=== PATIENT | male | born 1945 | race Caucasian/White ===

== ENCOUNTER 2019-05-11 12:55 | Emergency (ER) | payer MEDICARE, BC ==
[~2019-05-11] VITALS: Ht 172.7 cm; Wt 75.0 kg
[~2019-05-11 12:55] MED LIST: AMLO2.5T2 PO; AMOX-422 PO; ASPI-611 PO; MELO-100 PO; POTA-82 PO
[2019-05-11] MEDS ORDERED: acetaminophen 325mg tablet PO ONE (13:15)
[2019-05-11] MEDS ORDERED: HYDROcodone/acetaminophen 5mg/325mg tablet PO ONE (13:15)
[2019-05-11] MEDS ORDERED: dexamethasone 4mg/ml inj IM ONE (13:15)
[2019-05-11] MEDS ORDERED: BUPIVAcaine/PF 2.5 mg/ml (0.25%) 30ml vial IJ ONE (13:25)
[2019-05-11] MEDS ORDERED: fentaNYL/PF 50MCG/1 ML 2ML syringe IM ONE (13:25)
[2019-05-11] MEDS ORDERED: BUPIVAcaine/PF 2.5mg/ml (0.25%) 10ml vial IJ ONE (14:25)
[2019-05-11] MEDS ORDERED: ondansetron 4mg rapidly disintigrating tab PO ONE (14:35)
--- NOTE | 2019-05-11 14:43 | NUR ---
AT BEDSIDE WITH MD FOR ASPIRATION PROCEDURE
[2019-05-11 16:10] LABS: APPEARANCE,SYNOVIAL FLUID CLOUDY; COLOR,SYNOVIAL FLUID YELLOW; SYN WBC 43500 /CU MM (0-200)
[2019-05-11 16:11] LABS: MONOCYTES,SYNOVIAL FLUID 1 % (0-0); NEUTROPHILS,SYNOVIAL FLUID 99 % (0-25); SYN RBC 575 /CU MM (0)
[2019-05-11 16:15] LABS: SYNOVIAL FLUID CRYSTALS QT NO CRYSTALS SEEN
[2019-05-11] MEDS ORDERED: morphine 4 MG/ML inj SYRINge IM ONE (16:55)
[2019-05-11] MEDS ORDERED: ketorolac trometh inj. 60 MG/2 ML VIAL IM ONE (16:55)
[2019-05-11] MEDS ORDERED: triamcinolone acetonide 40mg/ml inj IM ONE (16:55)
[2019-05-11] MEDS ORDERED: HYDR-3965 PO (18:49)
[2019-05-11] MEDS ORDERED: ONDA8TAB6 PO (18:49)
--- NOTE | 2019-05-11 18:59 | NUR ---
PT EDUCATED ON USE OF CRUTCHES. PT DEMOSTRATED AMBULATION W/ CRUTCHES TO BATHROOM.
[2019-05-11 19:00] VITALS: BP 156/101
== END 2019-05-11 19:10 | disposition home or self-care (01) ==
LOC: ER 12:55
DX: M25.561 Pain in right knee (principal); G89.29 Other chronic pain; M19.90 Unspecified osteoarthritis, unspecified site; Z79.82 Long term (current) use of aspirin; Z79.899 Other long term (current) drug therapy; Z98.890 Other specified postprocedural states; X58.XXXA Exposure to other specified factors, initial encounter; Y93.89 Activity, other specified; Y92.89 Other specified places as the place of occurrence of the external cause; Y99.8 Other external cause status
CPT/HCPCS: 20610; 87070; 89051; 89060; 96372; 99284; J1100; J1885; J2270; J3010; J3301; J3490

== ENCOUNTER 2019-06-22 15:02 | Emergency (ER) | payer MEDICARE, BC ==
[~2019-06-22] VITALS: Ht 172.7 cm; Wt 68.2 kg
[~2019-06-22 15:02] MED LIST changes: +ONDA8TAB6 PO
[2019-06-22 15:56] VITALS: BP 141/82
[2019-06-22 16:32] LABS: BASOPHILS # (AUTO) 0.1 X10'3 (0-0.2); BASOPHILS % (AUTO) 0.9 % (0-1); EOSINOPHILS % (AUTO) 0.3 % (0-6); HEMATOCRIT 45.4 % (42.0-52.0); HEMOGLOBIN 15.3 g/dl (14.0-17.9); LYMPHOCYTES # (AUTO) 1.3 X10'3 (1.1-4.8); LYMPHOCYTES % (AUTO) 9.4 % (21-51); MEAN CORPUSCULAR HEMOGLOBIN 31.1 PG (27.0-31.0); MEAN CORPUSCULAR HGB CONC 33.7 g/dL (33.0-36.5); MEAN CORPUSCULAR VOLUME 92.4 FL (78-98); MEAN PLATELET VOLUME 9.2 FL (7.4-10.4); MONOCYTES % (AUTO) 7.2 % (2-12); NEUTROPHILS % (AUTO) 82.2 % (42-75); PLATELET COUNT 186 X10'3 (140-440); RED BLOOD COUNT 4.92 X10'6 (4.70-6.10); RED CELL DISTRIBUTION WIDTH 15.1 % (11.5-14.5); WHITE BLOOD COUNT 13.3 X10'3 (4.5-11.0)
[2019-06-22 16:39] LABS: ALBUMIN 3.8 G/DL (3.4-5.0); ANION GAP 9 (8-16); BLOOD UREA NITROGEN 15 MG/DL (7-18); BUN/CREATININE RATIO 13.4 (5.4-32.0); CALCIUM 9.1 MG/DL (8.5-10.1); CHLORIDE 103 MMOL/L (99-107); CREATININE 1.12 MG/DL (0.60-1.10); GLUCOSE 98 MG/DL (70-104); POTASSIUM 3.6 MMOL/L (3.5-5.1); SODIUM 141 MMOL/L (135-145); TOTAL CARBON DIOXIDE 29.2 MMOL/L (24-32); eGFR 64 ML/MIN
[2019-06-22] MEDS ORDERED: ibuprofen tablet 400 MG TABLET PO ONE (17:20)
[2019-06-22 17:37] LABS: D-DIMER 0.29 MG/L FEU (0-0.50)
== END 2019-06-22 18:01 | disposition home or self-care (01) ==
LOC: ER 15:03
DX: R09.1 Pleurisy (principal); R07.1 Chest pain on breathing; M19.90 Unspecified osteoarthritis, unspecified site; G89.29 Other chronic pain; K21.9 Gastro-esophageal reflux disease without esophagitis; Z98.890 Other specified postprocedural states; Z79.2 Long term (current) use of antibiotics; Z79.899 Other long term (current) drug therapy
CPT/HCPCS: 36415; 71045; 80048; 84484; 85025; 85379; 93005; 99284

== ENCOUNTER 2020-08-20 05:49 | Day surgery (SDC) | payer MEDICARE, BC ==
[2020-08-13 12:26] LABS: BASOPHILS % (AUTO) 0.6 % (0-1); EOSINOPHILS % (AUTO) 0.5 % (0-6); LYMPHOCYTES # (AUTO) 1.7 X10'3 (1.1-4.8); LYMPHOCYTES % (AUTO) 27.6 % (21-51); MEAN CORPUSCULAR HEMOGLOBIN 32.2 PG (27.0-31.0); MEAN CORPUSCULAR HGB CONC 33.5 g/dL (33.0-36.5); MEAN CORPUSCULAR VOLUME 96.1 FL (78-98); MONOCYTES # (AUTO) 0.7 X10'3 (0-0.9); MONOCYTES % (AUTO) 12.1 % (2-12); NEUTROPHILS # (AUTO) 3.6 X10'3 (1.8-7.7); NEUTROPHILS % (AUTO) 59.2 % (42-75); PRE OP HEMATOCRIT 47.2 % (42.0-52.0); PRE OP HEMOGLOBIN 15.8 g/dL (14.0-17.9); PRE OP PLATELET COUNT 137 X10'3 (140-440); RED BLOOD COUNT 4.91 X10'6 (4.70-6.10); RED CELL DISTRIBUTION WIDTH 14.3 % (11.5-14.5)
[2020-08-13 12:38] LABS: PRE OP INR 1.1 INR; PRE OP PROTIME 11.5 SECONDS (9.0-12.0)
[2020-08-13 12:42] LABS: ALBUMIN/GLOBULIN RATIO 1.1 (1.1-1.5); ALKALINE PHOSPHATASE 116 IU/L (46-116); BLOOD UREA NITROGEN 20 MG/DL (7-18); CALCIUM 9.2 MG/DL (8.5-10.1); CHLORIDE 108 MMOL/L (99-107); CREATININE 1.11 MG/DL (0.60-1.10); PRE OP ALT 30 U/L (30-65); PRE OP ANION GAP 11 (8-16); PRE OP AST 27 U/L (10-37); PRE OP BILIRUB, TOTAL 0.7 MG/DL (0.0-1.0); PRE OP GLUCOSE 88 MG/DL (70-104); PRE OP POTASSIUM 3.6 MMOL/L (3.4-5.1); PRE OP SODIUM 146 MMOL/L (135-145); TOTAL CARBON DIOXIDE 26.6 MMOL/L (24-32); TOTAL PROTEIN 7.5 G/DL (6.4-8.2); eGFR 65 ML/MIN
[2020-08-20] VITALS (10 sets, daily range): BP systolic 134–159; BP diastolic 76–92
[~2020-08-20] VITALS: Ht 170.2 cm; Wt 65.6 kg
[~2020-08-20 05:49] MED LIST changes: -AMOX-422 PO; -ASPI-611 PO; -MELO-100 PO; +OMEP20CA15 PO; -ONDA8TAB6 PO; -POTA-82 PO; +famotidine 20mg tablet PO ONE; +ringers solution, lacted 1,000 ML IV SCH
[2020-08-20] MEDS ORDERED: LIDOcaine 1% (10mg/ml) 2ml vial ONE (06:50)
[2020-08-20] MEDS ORDERED: LIDOcaine 1% w/epiNEPHrine 1:200,000 30ml vial SQ ONE (06:50)
[2020-08-20] MEDS ORDERED: LIDOcaine 1% W/epiNEPHrine 1:100,000 20ml vial SQ ONE (06:55)
[2020-08-20] MEDS ORDERED: cefTAZidime 1gm inj IV ONE (06:55)
[2020-08-20] MEDS ORDERED: phenylephrine 1% Nasal spray (extra-strength) 15 ML bottle **bronch room NS ONE (06:55)
[2020-08-20] MEDS ORDERED: methylPREDNISolone acetate 80mg/ml inj**IM only IM ONE (06:55)
[2020-08-20] MEDS ORDERED: cocaine 4% topical solution 4ml bottle TP ONE (06:55)
[2020-08-20] MEDS ORDERED: mupirocin 2% ointment 22GM NS ONE (06:56)
[2020-08-20] MEDS: oxymetazoline 15 ML nasal spray NS ONE ×2 (07:08→08:48)
[2020-08-20] MEDS ORDERED: ringers solution, lacted 1,000 ML IV SCH (08:00)
[2020-08-20] MEDS ORDERED: morphine 4 MG/ML inj SYRINge IV PRN (08:00)
[2020-08-20] MEDS ORDERED: fentaNYL/PF 50MCG/1 ML 2ML syringe IV PRN ×2 (08:00)
[2020-08-20] MEDS ORDERED: hydrALAZINE 20mg/ml inj. IV PRN (08:00)
[2020-08-20] MEDS ORDERED: morphine 2 MG/ML inj. syringe IV PRN (08:00)
[2020-08-20] MEDS ORDERED: labetalol 20mg/4ml (5mg/ml) syringe IV PRN (08:00)
[2020-08-20] MEDS ORDERED: ondansetron/PF 4mg/2ml inj IV PRN (08:00)
[2020-08-20] MEDS ORDERED: sevoflurane 250ml liquid IH ONE (08:05)
[2020-08-20] MEDS ORDERED: midazolam 2 mg/2 ml injection ONE (08:05)
[2020-08-20] MEDS ORDERED: fentaNYL/PF 50MCG/1 ML 2ML syringe ONE (08:05)
[2020-08-20] MEDS ORDERED: propofol inj 20 ML IV ONE (08:23)
[2020-08-20] MEDS ORDERED: LIDOcaine 2% (20mg/ml) 5ml vial ONE (08:23)
[2020-08-20] MEDS ORDERED: dexamethasone sod phosphate 4mg/ml inj. ONE (08:23)
[2020-08-20] MEDS ORDERED: ondansetron/PF 4mg/2ml inj ONE (08:24)
[2020-08-20] MEDS ORDERED: LIDOcaine 1% W/epiNEPHrine 1:100,000 20ml vial IJ ONE (08:48)
[2020-08-20] MEDS ORDERED: salt irrigation nasal spray 45 ML SPRAY NS PRN (10:15)
--- NOTE | 2020-08-20 10:20 | NUR ---
Received from OR via BED , accompanied by Anesthesiologist DR SRINIVASAN and report given by Anesthesiolgist. PATIENT WAKING UP, DENIES PAIN, V/S WNL, CSM INTACT, 20G PIV TO RUE, COTTONOID PACKING TO BILATERALLY SINUSES WITH NO ACTIVE DRAINAGE VISABLE AT THIS TIME
--- NOTE | 2020-08-20 11:40 | NUR ---
PATIENT WAKING UP, DENIES PAIN, V/S WNL, CSM INTACT, 20G PIV TO RUE, COTTONOID PACKING TO BILATERALLY SINUSES D/C 30MIN AFTER ARRIVAL TOP PACU WITH NO ACTIVE DRAINAGE VISABLE AT THIS TIME. MEDS GIVEN PER DR BYERS ORDERS NS AND OINTMENT. I HAVE REVIEWED D/C INSTRUCTIONS WITH PATIENT AND FAMILY AND THEY HAVE VERBALIZED UNDERSTANDING. PATIENT D/C HOME WITH ALL BELONGINGS AND FAMILY GAVE TRANSPORT HOME.PATIENT OFFERED MASK BUT REFUSED TO WEAR IT AT UPON D/C.
== END 2020-08-20 11:40 | disposition home or self-care (01) ==
LOC: PAS 05:49
PROVIDERS: ATTEND Otolaryngology
DX: J34.2 Deviated nasal septum (principal); J34.3 Hypertrophy of nasal turbinates; J32.8 Other chronic sinusitis; J34.89 Other specified disorders of nose and nasal sinuses; Z20.822 Contact with and (suspected) exposure to COVID-19; M19.90 Unspecified osteoarthritis, unspecified site; G89.29 Other chronic pain; I73.00 Raynaud's syndrome without gangrene; Z79.899 Other long term (current) drug therapy; Z98.890 Other specified postprocedural states; Z87.891 Personal history of nicotine dependence; Z87.11 Personal history of peptic ulcer disease; Z72.89 Other problems related to lifestyle; Z79.01 Long term (current) use of anticoagulants
CPT/HCPCS: 30140; 30520; 31240; 31253; 31267; 36415; 61782; 70486; 80053; 82948; 85025; 85576; 85610; 85730; 87070; 87075; 87102; 87635; 93005; A6402; C9250; C9803; J0713; J1100; J2001; J2250; J2270; J2405; J2704; J3010; J7040; J7120; 87077; A4618; A7000

== ENCOUNTER 2020-10-11 05:50 | Day surgery (SDC) | payer MEDICARE, BC ==
[2020-10-04 14:40] LABS: BASOPHILS # (AUTO) 0.1 X10'3 (0-0.2); BASOPHILS % (AUTO) 0.7 % (0-1); EOSINOPHILS % (AUTO) 0.4 % (0-6); LYMPHOCYTES # (AUTO) 2.1 X10'3 (1.1-4.8); LYMPHOCYTES % (AUTO) 29.2 % (21-51); MEAN CORPUSCULAR HGB CONC 33.8 g/dL (33.0-36.5); MEAN CORPUSCULAR VOLUME 94.8 FL (78-98); MEAN PLATELET VOLUME 9.8 FL (7.4-10.4); MONOCYTES # (AUTO) 0.8 X10'3 (0-0.9); NEUTROPHILS # (AUTO) 4.2 X10'3 (1.8-7.7); NEUTROPHILS % (AUTO) 58.7 % (42-75); PRE OP HEMATOCRIT 46.6 % (42.0-52.0); PRE OP HEMOGLOBIN 15.7 g/dL (14.0-17.9); PRE OP PLATELET COUNT 157 X10'3 (140-440); RED BLOOD COUNT 4.92 X10'6 (4.70-6.10); RED CELL DISTRIBUTION WIDTH 14.1 % (11.5-14.5)
[2020-10-04 14:52] LABS: ALBUMIN 3.8 G/DL (3.4-5.0); ALBUMIN/GLOBULIN RATIO 1.1 (1.1-1.5); ALKALINE PHOSPHATASE 123 IU/L (46-116); BLOOD UREA NITROGEN 18 MG/DL (7-18); BUN/CREATININE RATIO 16.1 (5.4-32.0); CALCIUM 9.3 MG/DL (8.5-10.1); CHLORIDE 106 MMOL/L (99-107); CREATININE 1.12 MG/DL (0.60-1.10); PRE OP ALT 24 U/L (30-65); PRE OP ANION GAP 7 (8-16); PRE OP AST 25 U/L (10-37); PRE OP BILIRUB, TOTAL 0.4 MG/DL (0.0-1.0); PRE OP GLUCOSE 117 MG/DL (70-104); PRE OP POTASSIUM 4.1 MMOL/L (3.4-5.1); PRE OP SODIUM 142 MMOL/L (135-145); TOTAL CARBON DIOXIDE 28.9 MMOL/L (24-32); TOTAL PROTEIN 7.4 G/DL (6.4-8.2); eGFR 64 ML/MIN
[~2020-10-11] VITALS: Ht 170.2 cm; Wt 68.8 kg
[2020-10-11] VITALS (8 sets, daily range): BP systolic 123–152; BP diastolic 67–90
[~2020-10-11 05:50] MED LIST changes: +ceFAZolin 2gm in dextrose, iso 50 ML IV ONE
[2020-10-11] MEDS ORDERED: cloNIDine hcl/PF 100mcg/ml inj ONE (06:59)
[2020-10-11] MEDS ORDERED: morphine 4 MG/ML inj SYRINge IV PRN (07:15)
[2020-10-11] MEDS ORDERED: proCHLORperazine 10 MG/2 ml inj IV PRN (07:15)
[2020-10-11] MEDS ORDERED: meperidine/PF 25mg/ml syringe IV PRN ×3 (07:15)
[2020-10-11] MEDS ORDERED: ondansetron/PF 4mg/2ml inj IV PRN (07:15)
[2020-10-11] MEDS ORDERED: ringers solution, lacted 1,000 ML IV SCH (07:15)
[2020-10-11] MEDS ORDERED: morphine 2 MG/ML inj. syringe IV PRN (07:15)
[2020-10-11] MEDS ORDERED: BUPIVAcaine/PF 2.5mg/ml (0.25%) 10ml vial ONE (07:54)
[2020-10-11] MEDS ORDERED: sevoflurane 250ml liquid IH ONE (08:04)
[2020-10-11] MEDS ORDERED: fentaNYL/PF 50MCG/1 ML 2ML syringe ONE (08:04)
[2020-10-11] MEDS ORDERED: midazolam 1 mg/ML 2ml injection ONE (08:05)
[2020-10-11] MEDS ORDERED: propofol inj 20 ML IV ONE (08:07)
[2020-10-11] MEDS ORDERED: ROPIVAcaine 0.5% (5mg/ml) 30ml vial ONE (08:07)
--- NOTE | 2020-10-11 09:48 | NUR ---
Received from OR via , accompanied by Anesthesiologist DR MIRANDA and report given by Anesthesiolgist. AWAKENS TO VOICE. VITALS STABLE. DRESSING DI. PIA PAIN. FINGERS WARM AND PINK.
--- NOTE | 2020-10-11 10:58 | NUR ---
AWAKE AND ORIENTED. VITALS STABLE. SPLINT DI. PIA PAIN. HOME WITH HIS AT THIS TIME.
== END 2020-10-11 10:58 | disposition home or self-care (01) ==
LOC: PAS 05:50
PROVIDERS: ATTEND Orthopaedic Surgery Hand Surgery
DX: M19.031 Primary osteoarthritis, right wrist (principal); G56.01 Carpal tunnel syndrome, right upper limb; I73.00 Raynaud's syndrome without gangrene; G89.18 Other acute postprocedural pain; Z20.822 Contact with and (suspected) exposure to COVID-19; Z98.890 Other specified postprocedural states; Z87.891 Personal history of nicotine dependence; Z79.899 Other long term (current) drug therapy; Z72.89 Other problems related to lifestyle; F12.90 Cannabis use, unspecified, uncomplicated
CPT/HCPCS: 25820; 36415; 64415; 64721; 76942; 80053; 82948; 85025; C1713; J0735; J2250; J2704; J3010; J3490; J7120; U0003; A4618; A7000; J2795

== ENCOUNTER 2020-12-30 08:33 | Emergency (ER) | payer MEDICARE, BC ==
[~2020-12-30] VITALS: Ht 170.2 cm; Wt 66.0 kg
[~2020-12-30 08:33] MED LIST changes: -ceFAZolin 2gm in dextrose, iso 50 ML IV ONE; -famotidine 20mg tablet PO ONE; -ringers solution, lacted 1,000 ML IV SCH
[2020-12-30] MEDS ORDERED: normal saline 1000ml 1,000 ML IV ONE (09:00)
[2020-12-30] MEDS ORDERED: ondansetron/PF 4mg/2ml inj IV ONE (09:00)
[2020-12-30] MEDS ORDERED: ketorolac trometh. 30mg/ml inj. IV ONE (09:00)
--- NOTE | 2020-12-30 09:21 | NUR ---
PT STATED THAT HIS PAIN STARTED AT 0300 AM THIS AM WAS WORSE PAIN EVER,STARTED WITH TESTICULAR PAIN ADIATED TO LFT SIDE OF BACK AND EPIGASTRIC REGION,FOLOWED BY NAUSEA AND VOMITING.
[2020-12-30 09:27] LABS: BASOPHILS # (AUTO) 0.1 X10'3 (0-0.2); BASOPHILS % (AUTO) 0.5 % (0-1); EOSINOPHILS % (AUTO) 0 % (0-6); HEMATOCRIT 47.4 % (42.0-52.0); HEMOGLOBIN 15.9 g/dl (14.0-17.9); LYMPHOCYTES # (AUTO) 0.8 X10'3 (1.1-4.8); LYMPHOCYTES % (AUTO) 7.4 % (21-51); MEAN CORPUSCULAR HEMOGLOBIN 31.8 PG (27.0-31.0); MEAN CORPUSCULAR HGB CONC 33.5 g/dL (33.0-36.5); MEAN CORPUSCULAR VOLUME 94.9 FL (78-98); MEAN PLATELET VOLUME 9.9 FL (7.4-10.4); MONOCYTES # (AUTO) 0.5 X10'3 (0-0.9); MONOCYTES % (AUTO) 4.8 % (2-12); NEUTROPHILS # (AUTO) 9.2 X10'3 (1.8-7.7); NEUTROPHILS % (AUTO) 87.3 % (42-75); PLATELET COUNT 144 X10'3 (140-440); RED CELL DISTRIBUTION WIDTH 14.4 % (11.5-14.5); WHITE BLOOD COUNT 10.6 X10'3 (4.5-11.0)
[2020-12-30 09:58] LABS: ALANINE AMINOTRANSFERASE 35 U/L (12-78); ALBUMIN 4.3 G/DL (3.4-5.0); ALBUMIN/GLOBULIN RATIO 1.3 (1.1-1.5); ALKALINE PHOSPHATASE 113 IU/L (46-116); ANION GAP 13 (8-16); ASPARTATE AMINO TRANSFERASE 30 U/L (10-37); BILIRUBIN,TOTAL 0.5 MG/DL (0.1-1.0); BLOOD UREA NITROGEN 21 MG/DL (7-18); BUN/CREATININE RATIO 16.4 (5.4-32.0); CALCIUM 9.5 MG/DL (8.5-10.1); CHLORIDE 107 MMOL/L (99-107); CREATININE 1.28 MG/DL (0.60-1.10); GLUCOSE 160 MG/DL (70-104); POTASSIUM 3.3 MMOL/L (3.5-5.1); SODIUM 142 MMOL/L (135-145); TOTAL CARBON DIOXIDE 21.8 MMOL/L (24-32); TOTAL PROTEIN 7.5 G/DL (6.4-8.2); eGFR 55 ML/MIN
[2020-12-30 10:03] LABS: MAGNESIUM 1.7 MG/DL (1.5-2.4); TROPONIN I < 0.04 NG/ML (0.0-0.05)
[2020-12-30] MEDS ORDERED: morphine 4 MG/ML inj SYRINge IV ONE (10:25)
[2020-12-30 11:17] VITALS: BP 162/83
[2020-12-30 11:44] LABS: CLARITY,URINE CLEAR (Clear); COLOR,URINE STRAW (Yellow); GLUCOSE, URINE NEGATIVE (Neg); KETONES,URINE NEGATIVE (Neg); LEUKOCYTE ESTERASE ,URINE NEGATIVE (Neg); NITRITES, URINE NEGATIVE (Neg); OCCULT BLOOD,URINE SMALL (Neg); PROTEIN,URINE NEGATIVE (Neg); UROBILINOGEN,URINE 0.2 E.U/dL (0.2-1.0)
[2020-12-30 11:45] LABS: UA COLLECTION TYPE VOIDED
[2020-12-30 11:53] LABS: SQUAMOUS EPITHELIAL CELL,UR FEW /LPF (FEW)
[2020-12-30 11:54] LABS: BACTERIA,URINE NONE SEEN /HPF (Neg); RBC,URINE NONE SEEN /HPF (0-2); WBC,URINE 0-4 /HPF (0-4)
[2020-12-30] MEDS ORDERED: ONDA4TAB6 PO (12:03)
[2020-12-30] MEDS ORDERED: HYDR-3965 PO (12:03)
[2020-12-30] MEDS ORDERED: HYDROcodone/acetaminophen 5mg/325mg tablet PO ONE (12:05)
[2020-12-30] MEDS ORDERED: acetaminophen 325mg tablet PO ONE (12:05)
== END 2020-12-30 12:24 | disposition home or self-care (01) ==
LOC: ER 08:34
DX: N20.0 Calculus of kidney (principal); N50.812 Left testicular pain; R11.2 Nausea with vomiting, unspecified; N40.0 Benign prostatic hyperplasia without lower urinary tract symptoms; M19.90 Unspecified osteoarthritis, unspecified site; G89.29 Other chronic pain; Z85.9 Personal history of malignant neoplasm, unspecified; Z87.11 Personal history of peptic ulcer disease; Z79.899 Other long term (current) drug therapy
CPT/HCPCS: 36415; 71045; 74176; 76870; 80053; 81001; 83605; 83735; 84145; 84484; 85025; 87040; 93005; 93976; 96361; 96374; 96375; 99285; J1885; J2270; J2405; J7030

== ENCOUNTER 2021-03-17 06:22 | Day surgery (SDC) | payer MEDICARE, BC ==
[2021-03-10 14:12] LABS: BASOPHILS % (AUTO) 0.7 % (0-1); EOSINOPHILS # (AUTO) 0.1 X10'3 (0-0.9); LYMPHOCYTES # (AUTO) 2.2 X10'3 (1.1-4.8); MEAN CORPUSCULAR HEMOGLOBIN 32.1 PG (27.0-31.0); MEAN CORPUSCULAR HGB CONC 33.6 g/dL (33.0-36.5); MEAN CORPUSCULAR VOLUME 95.6 FL (78-98); MEAN PLATELET VOLUME 10.2 FL (7.4-10.4); MONOCYTES # (AUTO) 0.8 X10'3 (0-0.9); NEUTROPHILS # (AUTO) 4.1 X10'3 (1.8-7.7); NEUTROPHILS % (AUTO) 57.3 % (42-75); PRE OP HEMATOCRIT 46.3 % (42.0-52.0); PRE OP HEMOGLOBIN 15.6 g/dL (14.0-17.9); PRE OP PLATELET COUNT 134 X10'3 (140-440); RED BLOOD COUNT 4.85 X10'6 (4.70-6.10); RED CELL DISTRIBUTION WIDTH 14.3 % (11.5-14.5)
[2021-03-10 14:28] LABS: ALBUMIN 4.2 G/DL (3.4-5.0); ALBUMIN/GLOBULIN RATIO 1.2 (1.1-1.5); ALKALINE PHOSPHATASE 120 IU/L (46-116); BLOOD UREA NITROGEN 18 MG/DL (7-18); BUN/CREATININE RATIO 14.9 (5.4-32.0); CALCIUM 8.7 MG/DL (8.5-10.1); CHLORIDE 108 MMOL/L (99-107); CREATININE 1.21 MG/DL (0.60-1.10); PRE OP ALT 34 U/L (30-65); PRE OP ANION GAP 10 (8-16); PRE OP AST 27 U/L (10-37); PRE OP BILIRUB, TOTAL 0.4 MG/DL (0.0-1.0); PRE OP GLUCOSE 95 MG/DL (70-104); PRE OP POTASSIUM 4.1 MMOL/L (3.4-5.1); PRE OP SODIUM 145 MMOL/L (135-145); TOTAL CARBON DIOXIDE 27.5 MMOL/L (24-32); TOTAL PROTEIN 7.6 G/DL (6.4-8.2); eGFR 58 ML/MIN
[~2021-03-17] VITALS: Ht 170.2 cm; Wt 68.0 kg
[2021-03-17] VITALS (12 sets, daily range): BP systolic 133–163; BP diastolic 72–97
[~2021-03-17 06:22] MED LIST changes: +cefazolin/dext.iso 2gm/100ml IV ONE; +famotidine 20mg tablet PO ONE; +ringers solution, lacted 1,000 ML IV SCH
[2021-03-17] MEDS ORDERED: ringers solution, lacted 1,000 ML IV SCH (08:30)
[2021-03-17] MEDS ORDERED: ondansetron/PF 4mg/2ml inj IV PRN (08:30)
[2021-03-17] MEDS ORDERED: proCHLORperazine 10 MG/2 ml inj IV PRN (08:30)
[2021-03-17] MEDS ORDERED: morphine 2 MG/ML inj. syringe IV PRN (08:30)
[2021-03-17] MEDS ORDERED: morphine 4 MG/ML inj SYRINge IV PRN (08:30)
[2021-03-17] MEDS ORDERED: meperidine/PF 25mg/ml syringe IV PRN ×3 (08:30)
[2021-03-17] MEDS ORDERED: cloNIDine hcl/PF 100mcg/ml inj ONE (08:34)
[2021-03-17] MEDS ORDERED: fentaNYL/PF 50MCG/1 ML 2ML syringe ONE (08:35)
[2021-03-17] MEDS ORDERED: midazolam 1 mg/ML 2ml injection ONE (08:36)
[2021-03-17] MEDS ORDERED: propofol inj 20 ML IV ONE (08:38)
[2021-03-17] MEDS ORDERED: ROPIVAcaine 0.5% (5mg/ml) 30ml vial ONE (08:38)
[2021-03-17] MEDS ORDERED: sevoflurane 250ml liquid IH ONE (08:44)
--- NOTE | 2021-03-17 10:03 | NUR ---
Received from OR via [facility] IN STABLE CONDITION , accompanied by Anesthesiologist and PRODUCTION ENGINEER report given by PRODUCTION ENGINEER AND Anesthesiolgist. Addendum: 03/17/21 at 1018 by Terri Carrasquillo RN Amended: Links added.
[2021-03-17] MEDS ORDERED: acetaminophen 1,000mg/100ml IV 100 ML IV SCH ×2 (11:21→14:00)
--- NOTE | 2021-03-17 12:03 | NUR ---
PATIENT DISCHARGED FROM PACU IN STABLE CONDITION AFTER VERBAL AND WRITTEN DISCHARGE INSTRUCTIONS GIVEN. PATIENT GAVE VERBAL UNDERSTANDING OF INSTRUCTIONS GIVEN. PATIENT LEFT FACILITY VIA WHEELCHAIR WITH RN. Addendum: 03/17/21 at 1223 by Terri Carrasquillo RN Amended: Links added.
[2021-03-17] MEDS ORDERED: BUPIVAcaine/PF 2.5mg/ml (0.25%) 10ml vial ONE (13:08)
== END 2021-03-17 12:03 | disposition home or self-care (01) ==
LOC: PAS 06:22
PROVIDERS: ATTEND Orthopaedic Surgery Hand Surgery
DX: M96.0 Pseudarthrosis after fusion or arthrodesis (principal); G89.18 Other acute postprocedural pain; K21.9 Gastro-esophageal reflux disease without esophagitis; M19.90 Unspecified osteoarthritis, unspecified site; Z79.899 Other long term (current) drug therapy; Z20.822 Contact with and (suspected) exposure to COVID-19; Z87.891 Personal history of nicotine dependence
CPT/HCPCS: 25820; 26320; 36415; 64415; 76942; 80053; 82948; 85025; C1713; J0131; J0735; J2250; J2704; J3010; J3490; J7120; U0003; U0005; Z7506; Z7508; Z7512; A4565; A4618; A6449; A7000; J2795